=== PATIENT | female | born 2000 | race Two or more races ===

== ENCOUNTER 2019-08-02 12:39 | Emergency (ER) | payer OTHER, SELFPAY ==
[~2019-08-02] VITALS: Ht 157.5 cm; Wt 95.3 kg
[2019-08-02 14:00] VITALS: BP 148/86
== END 2019-08-02 15:01 | disposition home or self-care (01) ==
LOC: ER 12:39
DX: Z03.818 Encounter for observation for suspected exposure to other biological agents ruled out (principal); J06.9 Acute upper respiratory infection, unspecified
CPT/HCPCS: 87070; 87804; 87880; 99283; C9803; U0003

== ENCOUNTER 2019-08-13 12:49 | Inpatient (IN) | payer OTHER, SELFPAY ==
[~2019-08-13] VITALS: Ht 157.5 cm; Wt 131.8 kg
[2019-08-13] MEDS ORDERED: SODIUM CHLORIDE 0.9% 1,000 ML IV ONE ×2 (13:11)
[2019-08-13] MEDS ORDERED: cefTRIAXone 1GM/50ML D5W 50 ML IV ONE (13:15)
[2019-08-13] MEDS ORDERED: AZITHROMYCIN 500MG/ 250ML 250 ML IV ONE (13:15)
[2019-08-13] MEDS ORDERED: SODIUM CHLORIDE 0.9% 1,000 ML IV SCH (17:59)
[2019-08-13] MEDS ORDERED: ALUM & MAG HYDROX-SIMETH LIQ(MAALOX) 30 ML PO PRN (18:00)
[2019-08-13] MEDS ORDERED: HYDROcodone-ACET 5/325MG TAB PO PRN (18:00)
[2019-08-13] MEDS ORDERED: LORazepam 0.5 MG TAB PO PRN (18:00)
[2019-08-13] MEDS ORDERED: MORPHINE SULF INJ 2 MG/ML SYRINGE 1ML IV PRN ×2 (18:00)
[2019-08-13] MEDS ORDERED: ACETAMINOPHEN 500 MG TAB PO PRN (18:00)
[2019-08-13] MEDS ORDERED: NITROGLYCERIN 0.4 MG SL TAB SL PRN (18:00)
[2019-08-13] MEDS ORDERED: DOCUSATE SOD 100 MG CAP PO PRN (18:00)
[2019-08-13] MEDS ORDERED: ONDANSETRON HCL 4 MG/2 ML VIAL IV PRN (18:00)
[2019-08-13 18:03] LABS: Basophils # (auto) 0 10 ^3/uL (0-0.2); Basophils % (auto) 0.2 % (0.0-2.0); Eosinophils # (auto) 0 10 ^3/uL (0-0.8); Eosinophils % (auto) 0.5 % (0.0-7.0); Hemoglobin 14.1 g/dL (12.2-16.2); Lymphocytes # (auto) 2.2 10 ^3/uL (0.4-5.4); Lymphocytes % (auto) 36.8 % (10.0-50.0); Mean Corpuscular Hemoglobin 27.1 pg (28.0-32.0); Mean Corpuscular Hgb Conc. 33.6 g/dL (32.0-36.0); Mean Corpuscular Volume 80.6 fL (80.0-100.0); Monocytes # (auto) 0.3 10 ^3/uL (0-1.3); Monocytes % (auto) 4.8 % (0.0-12.0); Neutrophils # (auto) 3.5 10 ^3/uL (1.6-8.6); Neutrophils % (auto) 57.7 % (37.0-80.0); Platelet Count (auto) 183 10^3/uL (140-450); Red Blood Cells 5.21 10^6/uL (4.0-5.20); Red Cell Distribution Width 14.4 % (11.8-14.3); White Blood Cell 6.1 10^3/uL (4.4-10.8)
[2019-08-13 18:22] LABS: Albumin 3.6 g/dL (3.4-5.0); BUN/Creatinine Ratio 11.5; Calcium 8.3 mg/dL (8.5-10.1); Potassium 3.7 mmol/L (3.5-5.1)
[2019-08-13 18:25] LABS: Bilirubin, Total 0.3 mg/dL (0.2-1.0)
[2019-08-13 18:39] LABS: CRP High Sensitivity 0.94 mg/dL (< 0.3); Cholesterol 150 mg/dL (< 200); Magnesium 1.9 mg/dL (1.6-2.6)
[2019-08-13 19:00] LABS: HDL Cholesterol 33 mg/dL (40-59); LDL Cholesterol 98 mg/dL (< 100); Triglycerides 167 mg/dL (< 150)
--- NOTE | 2019-08-13 20:20 | NUR ---
Telemetry admit from ER ERIC ROCA admitted to Telemetry unit after SBAR received. Patient oriented to MICHAEL SHIRLEY RN primary RN, unit, room, bed, and unit policies regarding patient care and visiting hours. Patient now on continuous telemetry monitoring, tele box # 2and telemetry reading on arrival to unit is Sinus tachycardia HR 110. Patient weighed by bedscale and encouraged to call if they need something. All questions and concerns addressed, patient verbalized understanding.
[2019-08-13] MEDS: DOXYCYCLINE 100 MG TAB/CAP PO SCH (21:36)
--- NOTE | 2019-08-13 21:36 | NUR ---
patient educated on how to use IS. patient verbalized understanding and remonstrated.
[2019-08-13 22:00] VITALS: BP 138/88
[2019-08-13] MEDS ORDERED: ALBUTEROL SULF HFA 90MCG INH 200DOSE IN SCH (22:00)
[2019-08-13 22:20] VITALS: BP 137/91
[2019-08-13] MEDS ORDERED: INFLUENZA QUAD 2019-2020 0.5ml SYRG IM ONE (23:00)
[2019-08-13] MEDS ORDERED: PNEUMOCOCCAL VACC POLYS 25 MCG/0.5 ML VIAL IM ONE (23:00)
[2019-08-14] MEDS ORDERED: FUROSEMIDE 20 MG/2 ML VIAL IV ONE (01:00)
[2019-08-14 01:50] VITALS: BP 128/86
--- NOTE | 2019-08-14 01:50 | NUR ---
UA/urine culture/drug screen sent to lab
[2019-08-14 02:38] LABS: Amphetamine Screen, Urine NEGATIVE (NEGATIVE); Barbiturate Scree,Urine NEGATIVE (NEGATIVE); Benzodiazephine Screen, Urine NEGATIVE (NEGATIVE); Cannabinoid Screen, Urine NEGATIVE (NEGATIVE); Cocaine Screen, Urine NEGATIVE (NEGATIVE)
[2019-08-14 02:45] LABS: Opiate Scree,Urine NEGATIVE (NEGATIVE); Phencyclidine Screen, Urine NEGATIVE (NEGATIVE)
[2019-08-14 02:51] LABS: Alcohol, Urine < 3.0 mg/dL (0-10)
[2019-08-14 03:18] LABS: Urine Bacteria FEW /hpf (None Seen); Urine Blood 3+ /uL (Negative); Urine Mucus FEW (None Seen); Urine Specific Gravity 1.023 (1.001-1.035); Urine WBC 8 /hpf (0 - 5)
--- NOTE | 2019-08-14 05:29 | NUR ---
animal laboratory technician notified for lab draw
[2019-08-14] MEDS: FUROSEMIDE 20 MG/2 ML VIAL IV SCH ×2 (05:30→18:15)
[2019-08-14 05:31] VITALS: BP 128/89
--- NOTE | 2019-08-14 06:38 | NUR ---
lab draw canvas shop laborer notified again of lab draw
--- NOTE | 2019-08-14 07:05 | NUR ---
Patient is awake and alert denies sob distress or pain. report given to dayshift rn
--- NOTE | 2019-08-14 07:30 | NUR ---
Opening Shift Note Assumed care of patient, awake and alert. No S/S of distress/SOB or pain. Instructed on POC and to call for assist PRN, will continue to monitor for changes Q1hr and PRN.
[2019-08-14 07:57] LABS: Basophils # (auto) 0 10 ^3/uL (0-0.2); Eosinophils # (auto) 0.1 10 ^3/uL (0-0.8); Lymphocytes # (auto) 2.5 10 ^3/uL (0.4-5.4); Mean Corpuscular Hgb Conc. 32.7 g/dL (32.0-36.0); Neutrophils # (auto) 3.1 10 ^3/uL (1.6-8.6); Red Cell Distribution Width 14.5 % (11.8-14.3)
[2019-08-14 07:59] LABS: Basophils % (auto) 0.2 % (0.0-2.0); Eosinophils % (auto) 0.9 % (0.0-7.0); Hematocrit 42.9 % (36.0-46.0); Mean Corpuscular Hemoglobin 26.8 pg (28.0-32.0); Monocytes # (auto) 0.4 10 ^3/uL (0-1.3); Monocytes % (auto) 6.5 % (0.0-12.0); Neutrophils % (auto) 51.4 % (37.0-80.0); Platelet Count (auto) 180 10^3/uL (140-450); Red Blood Cells 5.24 10^6/uL (4.0-5.20)
[2019-08-14 08:05] LABS: INR 0.99 (0.9-1.15); Partial Thromboplastin Time 28.5 sec (23.64-32.05)
[2019-08-14 08:09] LABS: Anion Gap 6 (5-15); Carbon Dioxide 26 mmol/L (21-32); Chloride 105 mmol/L (98-107); Glucose 89 mg/dL (74-106); Potassium 3.4 mmol/L (3.5-5.1); Sodium 137 mmol/L (136-145)
[2019-08-14 08:10] LABS: Albumin 3.5 g/dL (3.4-5.0); Blood Urea Nitrogen 9 mg/dL (7-18); Calcium 8.2 mg/dL (8.5-10.1); Magnesium 1.9 mg/dL (1.6-2.6)
[2019-08-14 08:14] LABS: Alanine Aminotransferase 242 U/L (13-56); Alkaline Phosphatase 75 U/L (45-117); Aspartate Aminotransferase 138 U/L (15-37); BUN/Creatinine Ratio 15.3; Bilirubin, Total 0.4 mg/dL (0.2-1.0); GFR African American 165 mL/min; GFR Non-African American 137 mL/min; Total Protein 8.1 g/dL (6.4-8.2)
[2019-08-14 08:17] LABS: Phosphorus 3.3 mg/dL (2.5-4.90)
[2019-08-14] MEDS: ZINC SULFATE 220mg CAP or TAB PO SCH (09:56)
[2019-08-14] MEDS: ASCORBIC ACID 1,000 MG TAB PO SCH (09:56)
[2019-08-14] MEDS: DOXYCYCLINE 100 MG TAB/CAP PO SCH ×2 (09:56→21:33)
[2019-08-14] MEDS: CHOLECALCIFEROL (VITD3) 1,000UNIT=25mCg TAB PO SCH (09:57)
[2019-08-14] MEDS: ENOXAPARIN SOD 40 MG/0.4 ML SYRINGE SC SCH (09:58)
[2019-08-14] MEDS ORDERED: guaiFENesin-DM 100/10mg/5ml SYR PO PRN (10:30)
[2019-08-14] MEDS ORDERED: POTASSIUM CHL 20 Meq TABLET PO ONE (10:30)
[2019-08-14] MEDS ORDERED: methylPREDNISolone SOD SUCC 40 MG/ML VL IV ONE (10:30)
[2019-08-14 12:00] VITALS: BP 120/72
[2019-08-14] MEDS ORDERED: DexAMETHasone SOD PHOS 4 MG/1ML SDV INJ IV ONE (12:30)
[2019-08-14] MEDS: ALBUTEROL SULF HFA 90MCG INH 200DOSE IN SCH ×2 (14:09→21:33)
--- NOTE | 2019-08-14 14:13 | NUR ---
Respiratory note: INHALER BROUGHT TO BEDSIDE, PROVIDED PT EDUCATION, PT VERBALIZED UNDERSTANDING. BREATHING TX ADMINISTERED VIA MDI WITH CHAMBER, PT TOLERATED WELL, NO ADVERSE REACTIONS NOTED. HR 100, RR 18, SPO2 97% ON ROOM AIR. PT DENIES SOB AT THIS TIME, NO S/S OF RESPIRATORY DISTRESS NOTED.
[2019-08-14 16:15] VITALS: BP 128/89
[2019-08-14] MEDS ORDERED: ETON1IMP IL (16:23)
[2019-08-14] MEDS ORDERED: ASCO1CHW5 PO (16:24)
[2019-08-14 18:00] VITALS: BP 126/70
--- NOTE | 2019-08-14 19:28 | NUR ---
Opening Shift Note Assumed care of patient, awake and alert x 4. No S/S of distress/SOB or pain. Bed is in lowest position and locked. Call light within reach. Board updated. Tele box number matches monitor and leads are in correct placement. Instructed on POC and to call for assist PRN, will continue to monitor for changes Q1hr and PRN.
[2019-08-14 20:50] VITALS: BP 141/106
[2019-08-14] MEDS: POTASSIUM CHL 20 Meq TABLET PO SCH (21:33)
[2019-08-14] MEDS: DexAMETHasone SOD PHOS 4 MG/1ML SDV INJ IV SCH (21:33)
--- NOTE | 2019-08-14 21:33 | NUR ---
MDI ADMINISTERED BY SOPHIE KAYE.
[2019-08-14] MEDS ORDERED: methylPREDNISolone SOD SUCC 40 MG/ML VL IV SCH (22:00)
[2019-08-15 00:21] VITALS: BP 123/80
[2019-08-15 05:22] VITALS: BP 141/98
[2019-08-15] MEDS: ALBUTEROL SULF HFA 90MCG INH 200DOSE IN SCH ×3 (05:59→21:52)
--- NOTE | 2019-08-15 05:59 | NUR ---
MDI ADMINISTERED BY SOPHIE KAYE, PT WITH A RR 16, HR 68, SPO2 96%. WILL CONTINUE TO MONITOR PT.
[2019-08-15] MEDS: FUROSEMIDE 20 MG/2 ML VIAL IV SCH (06:00)
[2019-08-15 07:08] LABS: Potassium 4.1 mmol/L (3.5-5.1)
[2019-08-15 07:14] LABS: Calcium 8.9 mg/dL (8.5-10.1)
--- NOTE | 2019-08-15 08:00 | NUR ---
OPENING SHIFT NOTE: PATIENT RESTING IN BED. RESPIRATIONS EVEN AND UNLABORED. NO S/S OF DISTRESS NOTED AT THIS TIME. PATIENT DENIES SOB. ALERT AND ORIENTED X4. PATIENT DOES COMPLAIN OF COUGH WHEN TAKING IN A DEEP BREATH, BUT REPORTS BETTER THAN DAY PRIOR. ON ROOM AIR TOLERATING WELL. INCENTIVE SPIROMETER AT BEDSIDE. 2000ML PERFORMED WITH PROPER RETURN DEMONSTRATION. UPDATED ON POC. PATIENT VERBALIZED UNDERSTANDING. BED IN LOWEST LOCKED POSITION [facility] CALL LIGHT WITHIN REACH.
[2019-08-15 09:09] VITALS: BP 141/91
[2019-08-15] MEDS: DexAMETHasone SOD PHOS 4 MG/1ML SDV INJ IV SCH (10:19)
[2019-08-15] MEDS: ASCORBIC ACID 1,000 MG TAB PO SCH (10:19)
[2019-08-15] MEDS: ZINC SULFATE 220mg CAP or TAB PO SCH (10:19)
[2019-08-15] MEDS: DOXYCYCLINE 100 MG TAB/CAP PO SCH ×2 (10:19→21:52)
[2019-08-15] MEDS: ENOXAPARIN SOD 40 MG/0.4 ML SYRINGE SC SCH (10:19)
[2019-08-15] MEDS: POTASSIUM CHL 20 Meq TABLET PO SCH ×2 (10:19→21:52)
[2019-08-15] MEDS: CHOLECALCIFEROL (VITD3) 1,000UNIT=25mCg TAB PO SCH (10:19)
[2019-08-15 13:31] VITALS: BP 130/79
[2019-08-15 17:00] VITALS: BP 148/92
[2019-08-15] MEDS: FUROSEMIDE 20 MG TAB PO SCH (17:39)
--- NOTE | 2019-08-15 20:00 | NUR ---
OPEN NOTE assumed care of pt, upon entering room pt awake, alert and oriented x4. pt on room air no distress noted or expressed. pt denies any pain. pt updated on plan of care. pt has no additional questions at this time. pt bed locked, low and 2x rails up. call light in reach, pt encouraged to call as needed. this nurse to round q1hr and prn.
[2019-08-15 20:40] VITALS: BP 141/78
[2019-08-15] MEDS: DexAMETHasone 4 MG TAB PO SCH (21:52)
[2019-08-16] VITALS: BP 118/66
[2019-08-16 04:00] VITALS: BP 126/78
[2019-08-16] MEDS: ALBUTEROL SULF HFA 90MCG INH 200DOSE IN SCH ×3 (06:00→21:50)
--- NOTE | 2019-08-16 06:00 | NUR ---
I ADMINISTERED BY SOPHIE ALVAREZ
[2019-08-16] MEDS: FUROSEMIDE 20 MG TAB PO SCH ×2 (06:01→17:39)
[2019-08-16 07:59] LABS: Albumin 3.6 g/dL (3.4-5.0); BUN/Creatinine Ratio 21.3; Calcium 8.9 mg/dL (8.5-10.1); Potassium 4.1 mmol/L (3.5-5.1)
--- NOTE | 2019-08-16 08:00 | NUR ---
OPENING SHIFT NOTE: PATIENT RESTING IN BED. RESPIRATIONS EVEN AND UNLABORED. NO S/S OF DISTRESS NOTED AT THIS TIME. PATIENT DENIES SOB. ALERT AND ORIENTED X4. PATIENT DOES COMPLAIN OF COUGH WHEN TAKING IN A DEEP BREATH, BUT REPORTS BETTER THAN DAY PRIOR. ON ROOM AIR TOLERATING WELL. INCENTIVE SPIROMETER AT BEDSIDE. 2250ML PERFORMED WITH PROPER RETURN DEMONSTRATION. UPDATED ON POC. PATIENT VERBALIZED UNDERSTANDING. BED IN LOWEST LOCKED POSITION WITH CALL LIGHT WITHIN REACH.
[2019-08-16 08:02] LABS: Bilirubin, Total 0.4 mg/dL (0.2-1.0); Total Protein 8.6 g/dL (6.4-8.2)
[2019-08-16 09:00] VITALS: BP 130/74
[2019-08-16] MEDS: DexAMETHasone 4 MG TAB PO SCH ×2 (10:09→21:45)
[2019-08-16] MEDS: ASCORBIC ACID 1,000 MG TAB PO SCH (10:09)
[2019-08-16] MEDS: POTASSIUM CHL 20 Meq TABLET PO SCH ×2 (10:09→21:45)
[2019-08-16] MEDS: CHOLECALCIFEROL (VITD3) 1,000UNIT=25mCg TAB PO SCH (10:09)
[2019-08-16] MEDS: ZINC SULFATE 220mg CAP or TAB PO SCH (10:09)
[2019-08-16] MEDS: DOXYCYCLINE 100 MG TAB/CAP PO SCH ×2 (10:09→21:45)
[2019-08-16] MEDS: ENOXAPARIN SOD 40 MG/0.4 ML SYRINGE SC SCH (10:10)
[2019-08-16 13:00] VITALS: BP 119/73
[2019-08-16 17:00] VITALS: BP 125/84
--- NOTE | 2019-08-16 19:25 | NUR ---
Opening Shift Note Assumed care of patient, awake and alert. No S/S of distress/SOB or pain. The bed is locked in lowest position with call light within reach. Instructed on POC and to call for assist PRN, will continue to monitor for changes Q1hr and PRN.
--- NOTE | 2019-08-16 22:22 | NUR ---
MDI ADMINISTERED BY SOPHIE ROACH.
[2019-08-16 22:25] VITALS: BP 139/84
[2019-08-17 05:13] VITALS: BP 133/77
[2019-08-17] MEDS: FUROSEMIDE 20 MG TAB PO SCH (06:00)
[2019-08-17] MEDS: ALBUTEROL SULF HFA 90MCG INH 200DOSE IN SCH (06:00)
[2019-08-17 07:43] LABS: Basophils # (auto) 0 10 ^3/uL (0-0.2); Basophils % (auto) 0.2 % (0.0-2.0); Eosinophils # (auto) 0 10 ^3/uL (0-0.8); Hematocrit 39.5 % (36.0-46.0); Hemoglobin 13.2 g/dL (12.2-16.2); Lymphocytes # (auto) 1.7 10 ^3/uL (0.4-5.4); Lymphocytes % (auto) 19.9 % (10.0-50.0); Mean Corpuscular Hgb Conc. 33.3 g/dL (32.0-36.0); Monocytes # (auto) 0.5 10 ^3/uL (0-1.3); Monocytes % (auto) 5.5 % (0.0-12.0); Neutrophils # (auto) 6.4 10 ^3/uL (1.6-8.6); Neutrophils % (auto) 74.4 % (37.0-80.0); Nucleated Red Blood Cells % 0.1 %; Platelet Count (auto) 255 10^3/uL (140-450); Red Blood Cells 4.88 10^6/uL (4.0-5.20); Red Cell Distribution Width 14.1 % (11.8-14.3); White Blood Cell 8.7 10^3/uL (4.4-10.8)
[2019-08-17 08:00] LABS: Potassium 3.9 mmol/L (3.5-5.1)
[2019-08-17 08:09] LABS: Albumin 3.3 g/dL (3.4-5.0); BUN/Creatinine Ratio 17.7; Bilirubin, Total 0.4 mg/dL (0.2-1.0); Calcium 8.5 mg/dL (8.5-10.1); Magnesium 2.2 mg/dL (1.6-2.6); Phosphorus 3.8 mg/dL (2.5-4.90); Total Protein 7.6 g/dL (6.4-8.2)
[2019-08-17 08:28] VITALS: BP 139/84
[2019-08-17] MEDS: DOXYCYCLINE 100 MG TAB/CAP PO SCH (08:44)
[2019-08-17] MEDS: POTASSIUM CHL 20 Meq TABLET PO SCH (08:44)
[2019-08-17] MEDS: ZINC SULFATE 220mg CAP or TAB PO SCH (08:44)
[2019-08-17] MEDS: ASCORBIC ACID 1,000 MG TAB PO SCH (08:45)
[2019-08-17] MEDS: CHOLECALCIFEROL (VITD3) 1,000UNIT=25mCg TAB PO SCH (08:45)
[2019-08-17] MEDS: DexAMETHasone 4 MG TAB PO SCH (08:45)
[2019-08-17] MEDS: ENOXAPARIN SOD 40 MG/0.4 ML SYRINGE SC SCH (08:45)
[2019-08-17 09:00] VITALS: BP 131/78
[2019-08-17 10:46] VITALS: BP 125/84
[2019-08-17 11:18] LABS: Hepatitis B Surface Antigen Negative (Negative); Hepatitis C Antibody Negative (Negative)
[2019-08-17 11:19] LABS: Hepatitis A Ab IgM Negative; Hepatitis B Core IgM Negative
--- NOTE | 2019-08-17 12:55 | NUR ---
Discharge instructions given as ordered. Encourage to follow up with PMD as instructed. All questions and concerns addressed. Patient verbalized understanding. Medication reconciliation form completed and copy given to patient. . IV removed with catheter intact, pressure dressing applied, . Telemetry unit returned to ICU. Patient taken to vehicle via wheelchair with all personal belongings, accompanied by staff and family member. No distress noted at time of departure.
== END 2019-08-17 12:55 | disposition home health service (06) | DRG 177 ==
LOC: ER 12:49 → TELE 12:50 → TELE-EAST 20:20
PROVIDERS: ADMIT Hospitalist; ATTEND Internal Medicine
DX: U07.1 COVID-19 (principal); J12.89 Other viral pneumonia; Z68.43 Body mass index [BMI] 50.0-59.9, adult; E78.5 Hyperlipidemia, unspecified; E66.01 Morbid (severe) obesity due to excess calories; G47.33 Obstructive sleep apnea (adult) (pediatric); Z79.899 Other long term (current) drug therapy; Z28.21 Immunization not carried out because of patient refusal
CPT/HCPCS: 36415; 71045; 80048; 80053; 80061; 80074; 80307; 81001; 81025; 82728; 83036; 83605; 83615; 83735; 83880; 84100; 84443; 84484; 85025; 85379; 85610; 85730; 86141; 87040; 87070; 87086; 87804; 87880; 93005; 94640; 96365; G0378; J0696; J1100

== ENCOUNTER 2023-11-30 21:24 | Emergency (ER) | payer MEDICAID, OTHER ==
[~2023-11-30] VITALS: Ht 157.5 cm; Wt 134.0 kg
[~2023-11-30 21:24] MED LIST: ASCO1CHW5 PO; ETON68IM3 IL
[2023-11-30 23:33] LABS: Urine Bacteria FEW /hpf (None Seen); Urine Blood Negative /uL (Negative); Urine Clarity Turbid (Clear); Urine Mucus FEW (None Seen); Urine Protein, UAD Negative (Negative); Urine Specific Gravity 1.014 (1.001-1.035); Urine Urobilinogen Normal (Negative); Urine WBC 9 /hpf (0 - 5); Urine pH 5.5 (5.0-9.0)
[2023-11-30 23:42] LABS: Urine Color STRAW (Yellow)
[2023-12-01] MEDS ORDERED: NITR-87 PO (03:32)
[2023-12-01 03:36] VITALS: BP 130/72; PULSE 72; RESP 18; TEMP 98; O2SAT 97
== END 2023-12-01 03:37 | disposition home or self-care (01) ==
LOC: ER 21:24
DX: N39.0 Urinary tract infection, site not specified (principal); R22.9 Localized swelling, mass and lump, unspecified; Z79.899 Other long term (current) drug therapy; Z88.8 Allergy status to other drugs, medicaments and biological substances
CPT/HCPCS: 72192; 76856; 81001; 81025